=== PATIENT | female | born 1980 | race Caucasian/White ===

== ENCOUNTER 2018-03-16 21:18 | Inpatient (IN) | payer OTHER ==
[2018-03-16 22:40] VITALS: BMI 33.6
[2018-03-16] MEDS ORDERED: Lactated Ringer's 1,000 ML IV ONE (22:40)
[2018-03-16 23:33] LABS: BASO % 0.5 % (0.0-2.0); EOS # 0.2 K/uL (0.0-0.7); EOS % 2.3 % (0.0-4.0); HEMOGLOBIN 12.6 g/dL (12.0-16.0); LYMPH # 2.4 K/uL (1.0-4.3); LYMPH % 25.2 % (20.0-40.0); MEAN CELL VOLUME 84.9 fl (81.0-99.0); MEAN CORPUSCULAR HEMOGLOBIN 28.4 pg (27.0-31.0); MEAN CORPUSCULAR HGB CONC 33.4 g/dL (33.0-37.0); MEAN PLATELET VOLUME 10.3 fl (7.2-11.7); MONO # 0.5 K/uL (0.0-0.8); MONO % 5.3 % (0.0-10.0); NEUT # 6.5 K/uL (1.8-7.0); NEUT % 66.7 % (50.0-75.0); NRBC % 0.1 % (0.0-0.0); RBC 4.44 Mil/uL (3.80-5.20); RED CELL DISTRIBUTION WIDTH 16.3 % (11.5-14.5); WHITE BLOOD COUNT 9.7 K/uL (4.8-10.8)
[2018-03-16 23:58] VITALS: O2SAT 99
--- NOTE | 2018-03-17 01:16 | OBADHP ---
Datetime: 03/16/2018 23:03 Admit Comment, IP Provider: 37 y/o , 41.4 wks based on 1st trimester US with TATI 03/05/18 presents for IOL. Patient endorses good movements. Denies any LOF or VB. Reports irregular contractions . As per patient, she did US today which showed low amniotic fluid level and was told by Dr. Youngblood to come here for IOL. Denies any CP, SOB, N/V/D, or dysuria. PNC: Dr. Youngblood course: Unremarkable, GC/Chlamydia -/-, HbsAg -, HIV -, ROR nonreactive, VZV non immune, bloody type o+, Ab neg. US 02/28/18: Cephalic, Placenta posterior, JOB 13.0, BPP 8/8, FHR 132. PMHx: Denies PSHx: Denies Allergies: NKDA F/H: Noncontributory SocialHx: Denies alcohol/drugs/tobacco PE General: Well, NAD Chest: RRR, S1S2 Lungs: CTA B/L Abdomen: Gravid, NT Ext: No pedal edema, No calf tenderness A/P: 37 y/o , 41.4 wks based on 1st trimester US with TATI 03/05/18 presents for IOL. - EFM and [place] - Irregular contractions on toco - NST reactive, Moderate variability, + accels, No decels - Cervidil 10 mg PV, placed at 11:00 pm remove after 12 hrs. - LR 1L @ 999 and 125 ml/hr - anesthesia consult - CBC, type anc screen. Case discussed with attending Lance Campbell PGY1 Addendum: I saw and examined patient up presentation. I discussed plan with patient all patient questions an swered. Cervidil placed vaginally. [place] Pelvic Type - PN: Not Done Extremities - PN: Normal Abdomen - PN: Normal Back - PN: Normal Breast - PN: Not Done Lungs - PN: Normal Heart - PN: Normal Thyroid - PN: Not Done Neurologic - PN: Normal HEENT - PN: Normal General - PN: Normal FHR - Baseline A Provider: 120 Membranes, Provider: Intact Comments, ACOG Physical Exam: General: Well, NAD Chest: RRR, S1S2 Lungs: CTA B/L Abdomen: Gravid, NT Ext: No pedal edema, No calf tenderness IP Hx Assessment: The History has been Reviewed and is Current Vital Signs Provider: Reviewed; Within Normal Limits IP Chief Complaint: Scheduled induction of labor NICHD Variability Prov Fetus A: Moderate 6-25bpm NICHD Accel Fetus A IP Provider: 15X15 FHR Category Provider Fetus A: Category I NICHD Decel Fetus A IP Provider: None Genitourinary Exam: Normal DTRs - PN: Not Done IP Adm Impression: Postterm, intrauterine IP Admit Plan: Admit to unit; Initiate labor protocol
--- NOTE | 2018-03-17 12:34 | OBADHP ---
Datetime: 03/17/2018 11:25 FHR - Baseline A Provider: 130 Contraction Comments Provider: infrequently Vital Signs Provider: Reviewed; Within Normal Limits NICHD Variability Prov Fetus A: Moderate 6-25bpm NICHD Accel Fetus A IP Provider: 15X15 NICHD Decel Fetus A IP Provider: None Dilatation, Provider: FT Effacement, Provider: 50 Station, Provider: -3 Datetime: 03/16/2018 23:03 EGA AdmitDate IP: 41.4
--- NOTE | 2018-03-17 12:35 | OBPN ---
Datetime: 03/17/2018 11:25 IP Progress Impression: Normal progression of labor IP Informed Consent Obtain: Vaginal Delivery IP Procedures: Sterile Vag Exam IP Progress Plan: Continue present management Contraction Comments Provider: infrequently FHR - Baseline A Provider: 130 IP Progress Note Comment: Patient feeling some contractions, does not want pain medicine VE=FT/50/High BBN=675 mod chris, +accels, no decels TOCO = ctxning q infrequently A/P 1. patient to continue induction Cytotec 50mcg PO q 4 hrs 2. CEFM and TOCO Vital Signs Provider: Reviewed; Within Normal Limits NICHD Accel Fetus A IP Provider: 15X15 NICHD Variability Prov Fetus A: Moderate 6-25bpm Dilatation, Provider: FT Effacement, Provider: 50 Station, Provider: -3 NICHD Decel Fetus A IP Provider: None Datetime: 03/16/2018 23:03 Membranes, Provider: Intact FHR Category Provider Fetus A: Category I
[2018-03-18] MEDS ORDERED: Nalbuphine 20 mg/ml Inj (1 ml) IVP PRN (04:19)
[2018-03-18] MEDS ORDERED: Oxytocin 30 UNIT 30 UNITS/500 ML BAG IV ONE (12:00)
[2018-03-18] MEDS: Lactated Ringer's 1,000 ML IV SCH ×2 (13:00→23:30)
[2018-03-18] MEDS ORDERED: Oxytocin 30 units/LR 500ML 30 UNITS/500 ML BAG IV ONE (13:30)
--- NOTE | 2018-03-18 18:14 | OBPN ---
Datetime: 03/18/2018 13:09 IP Procedures: Sterile Vag Exam IP Progress Plan: Continue present management; Induction FHR - Baseline A Provider: 120s-130s IP Progress Note Comment: Late entry note. Patient seen and discussed plan with patient. Plan to start Pitocin augmentation. I discussed plan with patient all patient questions answered. Tracing category 1. Vital Signs Provider: Reviewed; Within Normal Limits NICHD Accel Fetus A IP Provider: 15X15 FHR Category Provider Fetus A: Category I NICHD Variability Prov Fetus A: Moderate 6-25bpm NICHD Decel Fetus A IP Provider: None
[2018-03-18] MEDS ORDERED: Fentanyl/Bupivacaine HCl 250 ML EPI SCH (19:10)
[2018-03-19] MEDS: Lactated Ringer's 1,000 ML IV SCH ×3 (09:32→17:30)
[2018-03-19] MEDS ORDERED: Oxytocin 30 units/LR 500ML 30 UNITS/500 ML BAG IV ONE (10:35)
[2018-03-19] MEDS ORDERED: Oxytocin 30 UNIT 30 UNITS/500 ML BAG IV ONE ×3 (14:39→18:25)
[2018-03-19] MEDS ORDERED: Lactated Ringer's 1,000 ML IV SCH (16:30)
[2018-03-19] MEDS ORDERED: Fentanyl/Bupivacaine HCl 250 ML EPI ONE ×2 (17:13→17:30)
--- NOTE | 2018-03-19 19:09 | OBPN ---
Datetime: 03/19/2018 19:07 IP Informed Consent Obtain: Vaginal Delivery IP Procedures: Intrauterine Pressure Catheter; Sterile Vag Exam IP Progress Plan: Continue present management Membranes, Provider: Ruptured Contraction Comments Provider: q 2-3 mins FHR - Baseline A Provider: 130 Vital Signs Provider: Reviewed; Within Normal Limits NICHD Variability Prov Fetus A: Moderate 6-25bpm Dilatation, Provider: 4 Effacement, Provider: 100 Station, Provider: -1 NICHD Decel Fetus A IP Provider: Early Datetime: 03/19/2018 15:30 IP Progress Impression: Normal progression of labor Amniotic Fluid Color, Provider: Clear IP Progress Note Comment: Patient evaluated, feeling uncomfortable, did not want pain medication at this time VE=4/100/-1, AROM, clear fluid RTU=563 mod chris, +accels, no decels TOCO = ctxning q 4 mins, Pit @ 30 mu/min A/P 1. Pt ruptured, now AROM and 4 cm, continue Pitocin augmentation 2. CEFM and TOCO 3. Re-[place]ala[place] as needed NICHD Accel Fetus A IP Provider: Prolonged
--- NOTE | 2018-03-19 19:11 | OBPN ---
Datetime: 03/19/2018 19:07 IP Progress Note Comment: Patient evaluated s/p epidural. VE= 4/100/0, IUPC placed FHR = 130 mod chris, +accels, early decels TOCO = ctxning q 2-3 mins, Pitocin @ 30 mu/min A/P 1. Patient has IUPC to monitor contractions, will increase Pitocin to max of 40 mu/min. Discussed with patient if patient is not in active labor and progressing adequately, or maternal/ distress , may have to consider for delivery 2. CEFM and TOCO 3. Re-[place]ala[place] as needed
--- NOTE | 2018-03-19 21:35 | OBPN ---
Datetime: 03/19/2018 21:29 IP Informed Consent Obtain: Vaginal Delivery IP Procedures: Scalp Electrode; Sterile Vag Exam IP Progress Plan: Continue present management Contraction Comments Provider: about 100 MVU FHR - Baseline A Provider: 175 IP Progress Note Comment: Patient comfortable, now 6cm. Pitocin was stopped due to a bradycardic epi sode lasting about 7 mins, with rescuscitation FHR returned to normal baseline, mod chris. Waited for a bout 45 mins for FHR to recooperate, Pitocin restarted at 17 mu/min. FSE now placed. Last maternal te mp = 99.1. FHR is still Cat-II, will watch closely, if arrest of labor or maternal/ distress navdeep l proceed with Vital Signs Provider: Reviewed; Within Normal Limits NICHD Variability Prov Fetus A: Moderate 6-25bpm Dilatation, Provider: 6 Effacement, Provider: 100 Station, Provider: 0 NICHD Decel Fetus A IP Provider: Early
[2018-03-20] MEDS ORDERED: ceFAZolin IV 2 gm in Dextrose 2 GM/50 ML BAG IVPB ONE ×2 (01:37→01:42)
[2018-03-20] MEDS ORDERED: Bicitra 30 ML UD PO ONE (01:38)
[2018-03-20] MEDS ORDERED: Lidocaine 2% PF (10 ml) Amp ONE ×2 (01:42→01:43)
[2018-03-20] MEDS ORDERED: Lactated Ringer's 1,000 ML IV ONE (01:42)
[2018-03-20] MEDS ORDERED: Oxytocin 30 UNIT 30 UNITS/500 ML BAG IV ONE (01:43)
[2018-03-20] MEDS ORDERED: OXYTOCIN/0.9 % NS 20 UNIT/1,000 ML BAG IV SCH (01:45)
[2018-03-20] MEDS ORDERED: OXYTOCIN/0.9 % NS 20 UNIT/1,000 ML BAG IV ONE (01:53)
[2018-03-20] MEDS ORDERED: Azithromycin 500 MG in Sodium Chloride 0.9% 250 ML IVPB STA (01:56)
[2018-03-20] MEDS ORDERED: Morphine 1 mg/ml preservative-free Inj(Duramorph) ONE (01:59)
[2018-03-20] MEDS ORDERED: Oxytocin 30 units/LR 500ML 30 UNITS/500 ML BAG IV ONE (02:00)
[2018-03-20] MEDS ORDERED: Phenylephrine 10 mg/ml Inj ONE (02:41)
[2018-03-20] MEDS ORDERED: DiphenhydrAMINE 50 mg/ml Inj IVP PRN ×2 (03:19→09:42)
[2018-03-20] MEDS ORDERED: Oxycodone/Acetaminophen 5/325 mg Tab PO PRN ×4 (03:24→09:42)
--- NOTE | 2018-03-20 03:36 | OBPN ---
Datetime: 03/20/2018 01:50 IP Progress Impression: Arrest of dilatation/descent; Non-reassuring heart rate IP Informed Consent Obtain: Section Delivery IP Progress Plan: Deliver- Section Membranes, Provider: Ruptured Contraction Comments Provider: 150 MVU FHR - Baseline A Provider: 150 IP Progress Note Comment: Patient evaluated - pt has had recurrent variable decelerations for a few hours, deep variables resolved mostly with amnioinfusion. Patient continued to have episodes of prolo nged decelerations to 60 bpm for over 2 - 3 mins in some episodes, with spontaneous resolution to bas hao. Patient then was having recurrent variables mixed with late decelrations and moderate variabil ity. Discussed with patient FHR was CAT-2 for prolonged period of time without resolution despite res cucitation, unable to continue induction with pitocin because of worsening signs of late deceleration s. Patient advised to be delivered via , risks/benefits of surgery discussed, Ancef and Azit hromycin to be given preoperatively and intraoperatively, SCDs bilaterally. Pt signed informed consen t, will proceed to OR Vital Signs Provider: Reviewed; Within Normal Limits NICHD Accel Fetus A IP Provider: 15X15 NICHD Variability Prov Fetus A: Moderate 6-25bpm Dilatation, Provider: 5-6 Effacement, Provider: 80 Station, Provider: 0 NICHD Decel Fetus A IP Provider: Late; Variable; Prolonged
--- NOTE | 2018-03-20 03:43 | OBDS ---
MATERNAL INFORMATION Provider Comments: Surgeon: Dr. Wood Food Safety Director: Dr. Coleman Pre-operative Dx: Post term , Cat-II tracing with recurrent variables and late decelerati ons remote from delivery Findings: Live female infant 6lbs 12oz, 9/9, cephalic, grossly nml tubes ovaries, placenta, uterus Anesthesia: Epidural by Dr. Aragon EBL: 800mL Total input: 1400mL total output: 350mL complications: none Condition: stable Pathology: Cord ph and cord blood LABOR SUMMARY EDC: 03/12/2018 00:00 No. Babies in Womb: 1 LABOR INFORMATION Cervical Ripening Agents: Cytotec @ 50 Group B Beta Strep: Negative MEMBRANES Membranes Rupture Method: Artificial Rupture of Membranes: 03/19/2018 15:37 Amniotic Fluid Color: Clear Amniotic Fluid Amount: Moderate Amniotic Fluid Odor: Normal PRESENTATION/POSITION BABY A Presentation: Cephalic
[2018-03-20] MEDS ORDERED: Simethicone 80 mg Chewtab PO SCH (04:00)
--- NOTE | 2018-03-20 06:05 | OP ---
PROCEDURE DATE: 03/20/2018 SURGEON: Deanna Wood MD DIMETHYLANILINE SULFATOR OPERATOR: Reyna Coleman DO, PGY-2 PREOPERATIVE DIAGNOSES: 1. Post-term . 2. Oligohydramnios. 3. Category 2 tracing with recurrent variables and late decelerations, remote from delivery. FINDINGS: Live female infant, 6 pounds 12 ounces, 9 and 9 Apgars, cephalic. Meconium fluid. Grossly normal tubes, ovaries, placenta and uterus. ANESTHESIA: Epidural by Dr. Aragon. ESTIMATED BLOOD LOSS: 100 mL. URINE OUTPUT: 300 mL. TOTAL FLUID INPUT: 1400 mL. COMPLICATIONS: None. CONDITION: Stable. PATHOLOGY SPECIMEN: Cord pH and cord blood. INDICATION: This is a 37-year-old G1, P0 at 48 weeks and 1 day. Induction was started for the patient for oligohydramnios. The patient progressed to 5-6 cm with cervical ripening and Pitocin and ruptured of membranes. The patient was not adequately blaise, however, developed a category 2 tracing with recurrent variables and late decelerations, so it was advised at this point that the patient is unable to proceed with induction of labor. The patient was advised to proceed with for delivery. The risks and benefits of surgery including risks of bleeding, infection, damage to surrounding organs such as bowel, bladder, ureters, and uterus were advised to the patient. The patient verbalized understanding and signed informed consent. DESCRIPTION OF PROCEDURE: The patient was taken to the OR. Ancef was given preoperatively and azithromycin was given intraoperatively. Anesthesia was placed bilaterally. The patient was prepped and draped in a normal sterile fashion in dorsal supine position with leftward tilt. A Pfannenstiel skin incision was made with the scalpel and carried through the underlying layer of fascia with the scalpel and the Bovie. Fascia was incised in the midline. The incision was extended laterally with the Bovie. We used Danna clamps to tent up the superior aspect of this incision which we dissected off underlying pyramidalis muscles with the Bovie. In a similar fashion, we tented up the superior aspect of this incision which we dissected off underlying rectus abdominis muscles with the Bovie. The muscles were bluntly at the midline. The peritoneum was identified, picked, grabbed with, was elevated with hemostats and entered sharply with Metzenbaum scissors. The incision was extended superiorly and inferiorly until good visualization of all underlying organs. A bladder blade was placed. The lower uterine segment was identified. The intra-abdominal peritoneum was identified, grabbed, and picked with the Metzenbaum scissors, and the bladder flap was dissected off the lower uterine segment. The lower uterine segment was incised in a transverse fashion with the scalpel. The uterine cavity was entered. The uterine incision was extended manually. Meconium fluid was noted. was delivered in cephalic presentation atraumatically followed by shoulders and the rest of the atraumatically. Cord was clamped and cut. Infant was handed off to awaiting pediatric team. Cord pH was obtained. Cord blood was obtained. Placenta was extracted manually. The uterus was exteriorized, cleared of all clots. The uterine incision was repaired with one Vicryl stitch and second imbricating layer was done with an 0 Monocryl stitch. The hysterotomy site appeared to be hemostatic. The uterus was returned to the abdomen. Gutters were cleared of all clots. Again, hysterotomy site was inspected and appeared to be hemostatic. The peritoneum was closed with a 2-0 Monocryl. Muscles were reapproximated with the same stitch. The fascia was closed with 0 Vicryl stitch. Subcutaneous fat was reapproximated with a plain gut suture, and small bleeders were cauterized with the Bovie. Skin was closed with a 4-0 Monocryl. Sponge, lap and needle counts were correct x4. The patient was taken to the recovery room in stable condition. There were no other complications. Deanna Wood MD
[2018-03-20 06:38] LABS: HEMOGLOBIN 10.7 g/dL (12.0-16.0); MEAN CELL VOLUME 84.3 fl (81.0-99.0); MEAN CORPUSCULAR HEMOGLOBIN 28.1 pg (27.0-31.0); MEAN CORPUSCULAR HGB CONC 33.3 g/dL (33.0-37.0); RBC 3.83 Mil/uL (3.80-5.20); RED CELL DISTRIBUTION WIDTH 15.7 % (11.5-14.5); WHITE BLOOD COUNT 14.8 K/uL (4.8-10.8)
[2018-03-20] MEDS ORDERED: Multivitamin With Minerals Tab PO SCH (09:00)
[2018-03-20] MEDS: Multivitamin With Minerals Tab PO SCH (10:03)
[2018-03-21] MEDS: Multivitamin With Minerals Tab PO SCH (08:20)
--- NOTE | 2018-03-21 09:33 | OBPPN ---
Datetime: 03/21/2018 09:31 PP Pain Prov: Within normal limits PP Nausea Prov: Denies PP Flatus Prov: Yes PP BM Prov: No PP Breasts Prov: Normal PP Heart Prov: Normal PP Lungs Prov: Normal PP Abdomen/Uterus Prov: Normal PP Lochia Prov: Normal PP Vulva/Perineum Prov: Normal PP CVA Tenderness Prov: Normal PP Extremities Prov: Normal PP C/S Incision Prov: Normal PP Impression Prov: Normal progression PP Plan Prov: Continue present management PP Progress Note Prov: She feels fine H/H A: S/P C/S day 1 PLAN cont postop care Vital Signs Provider PP: Reviewed; Within Normal Limits
[2018-03-22] MEDS: Multivitamin With Minerals Tab PO SCH (08:20)
--- NOTE | 2018-03-22 22:49 | OBPPN ---
Datetime: 03/22/2018 22:47 PP Pain Prov: Within normal limits PP Nausea Prov: Denies PP Flatus Prov: Yes PP Breasts Prov: Not Done PP Heart Prov: Normal PP Lungs Prov: Normal PP Abdomen/Uterus Prov: Normal PP Lochia Prov: Not Done PP Vulva/Perineum Prov: Not Done PP CVA Tenderness Prov: Normal PP Extremities Prov: Normal PP Impression Prov: Normal progression PP Plan Prov: Continue present management PP Progress Note Prov: Patient doing well ambulating tolerating diet Vital signs stable afebrile Uterus firm below the umbilicus Incision clean dry and intact Postoperative day 2 Ambulate, regular diet, analgesias needed Vital Signs Provider PP: Reviewed
[2018-03-23] MEDS: Multivitamin With Minerals Tab PO SCH (09:30)
[2018-03-23 23:12] VITALS: BP 138/71; PULSE 67; RESP 17; TEMP 98.2
--- NOTE | 2018-03-24 01:15 | OBDCSUM ---
Datetime: 03/23/2018 15:12 Discharged to, Provider: Home Follow up at, Provider: [facility] Disch Instr Activity: Normal activity; May Shower Disch Instr Diet: Regular Discharge Instructions, Provider: Routine instructions given Discharge Diagnosis, Provider: Term Delivered Discharge Time: 03/23/2018 17:05 Follow up in weeks, Provider: 1 week Disch Referrals: None Contraception discussed, Prov: Yes Disch Activity Restrictions: No sexual activity; Nothing in vagina - Milo, tampons, douche
--- NOTE | 2018-03-24 01:15 | OBPPN ---
Datetime: 03/23/2018 13:12 PP Pain Prov: Within normal limits PP Nausea Prov: Denies PP Flatus Prov: Yes PP BM Prov: Yes PP Breasts Prov: Normal PP Heart Prov: Normal PP Lungs Prov: Normal PP Abdomen/Uterus Prov: Normal PP Lochia Prov: Normal PP Vulva/Perineum Prov: Normal PP CVA Tenderness Prov: Normal PP Extremities Prov: Normal PP Comments Phys Exam Prov: Abdomen soft, nontender, nondistended Uterus firm, below umbilicus Incision clean, dry, intact No deep Tenderness bilaterally PP Impression Prov: Normal progression PP Plan Prov: Continue present management PP Progress Note Prov: Postoperative day 3 status post , patient recovering well Patient discharged home with postoperative instructions Patient will follow up 1 week in office for incision check Discussed plan with patient all patient questions answered. IP PP Procedures: None Vital Signs Provider PP: Reviewed; Within Normal Limits
== END 2018-03-23 17:05 | disposition home or self-care (01) | DRG 765 ==
LOC: H.EROB2 21:18 → H.L&D 22:40 → H.OB/GYN 03-20 06:20
PROVIDERS: ADMIT Obstetrics & Gynecology; ATTEND Obstetrics & Gynecology
PROC: 4A1HXCZ Monitoring of Products of Conception, Cardiac Rate, External Approach (ICD-10-PCS; 2018-03-16)
PROC: 10D00Z1 Extraction of Products of Conception, Low, Open Approach (ICD-10-PCS; principal; 2018-03-20)
DX: O76 Abnormality in fetal heart rate and rhythm complicating labor and delivery (principal); O41.03X0 Oligohydramnios, third trimester, not applicable or unspecified; Z37.0 Single live birth; Z3A.42 42 weeks gestation of pregnancy; O77.0 Labor and delivery complicated by meconium in amniotic fluid; O48.0 Post-term pregnancy; Z98.891 History of uterine scar from previous surgery; O62.0 Primary inadequate contractions